=== PATIENT | male | born 1970 | race Caucasian/White ===

== ENCOUNTER 2019-03-16 18:26 | Emergency (ER) | payer MEDICAID ==
[~2019-03-16] VITALS: Ht 167.6 cm; Wt 71.2 kg
[~2019-03-16 18:26] MED LIST: CIPR500T4 PO; DOCU50CA9 PO; TRAM50TA2 PO
[2019-03-16 18:51] VITALS: BP 145/96; PULSE 95; RESP 18; Ht 167.6 cm; Wt 71.2 kg
[2019-03-16] MEDS ORDERED: KETOROLAC 30 MG INJ IM STA (20:39)
[2019-03-16] MEDS ORDERED: DEXAMETHASONE 10 MG/ML 1 ML INJ IM ONE (21:00)
[2019-03-16] MEDS ORDERED: TRAM50TA2 PO (22:11)
--- NOTE | 2019-03-16 22:12 | ERD ---
ER Documentation Chief Complaint Chief Complaint right shoulder pain, states glf x 2weeks ago ROS All systems reviewed and are negative except as per history of present illness. Medications Home Meds Active Scripts Tramadol HCl (Tramadol HCl) 50 Mg Tablet, 50 MG PO Q6H PRN for PAIN, #20 TAB Prov:GABRIELA REYES DO 03/16/19 Tramadol HCl (Tramadol HCl) 50 Mg Tablet, 25 MG PO Q6 PRN for PAIN, #15 TAB Prov:DOMENIC MONTOYA C 09/18/16 Docusate Sodium* (Stool Softener*) 50 Mg Capsule, 50 MG PO BID for 3 Days, CAP Prov:DOMENIC MONTOYA C 09/18/16 Ciprofloxacin Hcl* (Ciprofloxacin Hcl*) 500 Mg Tablet, 500 MG PO BID for 3 Days, TAB Prov:DOMENIC MONTOYA C 09/18/16 Allergies Allergies: Coded Allergies: No Known Drug Allergy (Verified Allergy, Mild, 09/17/16) PMhx/Soc History of Surgery: No Anesthesia Reaction: No Hx Neurological Disorder: No Hx Respiratory Disorders: No Hx Cardiac Disorders: No Hx Psychiatric Problems: No Hx Miscellaneous Medical Probl: No Hx Alcohol Use: No Hx Substance Use: No Hx Tobacco Use: No Smoking Status: Never smoker Physical Exam Vitals Vital Signs Date Temp Pulse Resp B/P (MAP) Pulse Ox O2 O2 Flow FiO2 Time Delivery Rate 03/16/19 98.5 95 18 145/96 97 18:51 (112) Physical Exam Const: No acute distress Head: Atraumatic Eyes: Normal Conjunctiva ENT: Normal External Ears, Nose and Mouth. Neck: Full range of motion. No meningismus. Resp: Clear to auscultation bilaterally Cardio: Regular rate and rhythm, no murmurs Abd: Soft, non tender, non distended. Normal bowel sounds Skin: No petechiae or rashes Back: No midline or flank tenderness Ext: No cyanosis, or edema Neur: Awake and alert Psych: Normal Mood and Affect Results 24 hrs Current Medications Medications Dose Sig/Quinn Start Time Status Last (Trade) Ordered Route PRN Stop Time Admin Dose Reason Admin Ketorolac 30 mg ONCE STAT 03/16/19 DC 03/16/19 Tromethamine IM 20:39 20:51 (Toradol) 03/16/19 20:41 10 mg ONCE ONCE 03/16/19 DC 03/16/19 Dexamethasone IM 21:00 20:51 (Decadron) 03/16/19 21:01 Departure Diagnosis: Primary Impression: Right shoulder pain Chronicity: acute Qualified Codes: M25.511 - Pain in right shoulder Condition: Fair Patient Instructions: Shoulder Pain (Uncertain Cause) Referrals: [facility] YOU HAVE RECEIVED A MEDICAL SCREENING EXAM AND THE RESULTS INDICATE THAT YOU DO NOT HAVE A CONDITION THAT REQUIRES URGENT TREATMENT IN THE EMERGENCY DEPARTMENT. FURTHER EVALUATION AND TREATMENT OF YOUR CONDITION CAN WAIT UNTIL YOU ARE SEEN IN YOUR DOCTORS OFFICE WITHIN THE NEXT 1-2 DAYS. IT IS YOUR RESPONSIBILITY TO MAKE AN APPOINTMENT FOR FOLOW-UP CARE. IF YOU HAVE A PRIMARY DOCTOR --you should call your primary doctor and schedule an appointment IF YOU DO NOT HAVE A PRIMARY DOCTOR YOU CAN CALL OUR PHYSICIAN REFERRAL HOTLINE AT IF YOU CAN NOT AFFORD TO SEE A PHYSICIAN YOU CAN CHOSE FROM THE FOLLOWING [facility] [address] [facility] [address] [facility] [facility] [address] [facility] [address] [facility] [address] [facility]. [address] Additional Instructions: Llame al doctor MAANA y temitope davion EMILE PARA DENTRO DE 1-2 NICOLE.Dgale a la secretaria que nosotros le instruimos hacer esta emile.Avise o llame si lu condicin se empeora antes de la emile. Regresa aqui si peor o no mejor. GABRIELA REYES DO Mar 16, 2019 22:12
== END 2019-03-16 22:18 | disposition home or self-care (01) ==
LOC: FTE 18:26
DX: M25.511 Pain in right shoulder (principal)
CPT/HCPCS: 73000; 73030; 96372; J1100; J1885; Z7502